=== PATIENT | male | born 1945 | race Caucasian/White ===

== ENCOUNTER 2018-06-01 12:10 | Outpatient (CLI) | payer OTHER ==
[2013-01-13 12:24] VITALS: TEMP 98; BMI 29.9
--- NOTE | 2018-06-01 15:41 | US ---
EXAM: Bilateral carotid artery Doppler. History: Dizziness. Technique: Multiple sonographic images through the bilateral internal carotid arteries were obtained . Color duplex Doppler was used to interrogate vascular flow. Findings: The right ICA peak systolic velocity is within normal limits measuring 90 cm/sec. The right ICA/cca PSV ratio is normal at 1.2. The right vertebral artery is patent and demonstrates antegrade flow.Gra y scale images demonstrate mild to moderate plaque buildup within the right internal carotid artery. The left ICA peak systolic velocity is within normal limits measuring 100 cm/sec. The left ICA/cca P SV ratio is normal at 1.4. The left vertebral artery is patent and demonstrates antegrade flow. Gra y scale images demonstrate moderate plaque buildup within the left carotid bulb and proximal left int ernal carotid artery. Impression: No significant hemodynamic stenosis of the bilateral internal carotid arteries.
== END 2018-06-01 12:11 | disposition home or self-care (01) ==
LOC: RAD 12:10
PROVIDERS: ATTEND Internal Medicine
DX: R42 Dizziness and giddiness (principal)

== ENCOUNTER 2018-06-12 06:47 | Outpatient (CLI) | payer OTHER ==
[2013-01-13 12:24] VITALS: TEMP 98; BMI 29.9
--- NOTE | 2018-06-13 10:02 | ECHO2D ---
Date of Exam: 06/12/18 Ordering Physician: DR. QUE SHIELDS Room # : OP Reason for Echo: DIZZINESS, SOB M-Mode Normal Adult Results LV Dimensions Normal Adult Results AoV Opening excursions >1.6 1.2 LVEDD-base- 3.5-5.8 4.2 Ao root dimensions 2.0-3.7 3.3 LVESD-base- 3.1-4.6 L. Atrium dimensions 1.9-3.8 5.3 Post. Wall thickness 0.8-1.1 1.3 IV septum (thickness) 0.7-1.2 1.2 Post. Wall excursion 0.72-1.3 NORMAL Septal motion 0.5 Systolic motion R. Ventricular cavity 1.5-2.0 NORMAL LVEF 60% 64% Paradoxical septal wall motion NORMAL 2-D : MILDLY HYPOKINETIC SEPTUM--ENLARGED LEFT ATRIAL CAVITY--NORMAL LEFT VENTRICLE SIZE--CALCIFIC AORTIC VALVE WITH STENOSIS--NO EFFUSION, NO THROMBUS M-MODE: MV: NORMAL AV: CALCIFIC AORTIC VALVES WITH MILD STENOSIS VALVE AREA 1.4 CM2 TV: NORMAL PV: NORMAL CHAMBER SIZE: ENLARGED LEFT ATRIAL CAVITY WALL MOTION: HYPOKINETIC SEPTUM (MILD) PERICARDIUM: NORMAL INTERPRETATION: 1. LEFT VENTRICULAR HYPERTROPHY WITH ENLARGED LEFT ATRIAL CAVITY 2. MILDLY HYPOKINETIC SEPTAL WALL WITH NORMAL EJECTION FRACTION 3. NORMAL LEFT VENTRICLE SIZE 4. CALCIFIC AORTIC STENOSIS--MILD (PLANIMETRY MATTEO AREA 1.4 CM2) MTDD
== END 2018-06-12 06:48 | disposition home or self-care (01) ==
LOC: CAR 06:47
PROVIDERS: ATTEND Internal Medicine
DX: R06.02 Shortness of breath (principal)

== ENCOUNTER 2018-12-12 14:55 | Outpatient (CLI) ==
[2013-01-13 12:24] VITALS: TEMP 98; BMI 29.9
--- NOTE | 2018-12-12 15:15 | DI ---
EXAM: Three views of the right foot. History: Right foot pain. Findings: No acute fracture or dislocation. Old healed fracture deformity of the fifth metatarsal a nd fourth metatarsal. Degenerative changes are seen at the mid foot with dorsal osteophytes and shiraz cent soft tissue swelling with osseous irregularity. Borderline hallux valgus deformity. Mild to mo derate narrowing of the first MTP joint with osteophyte formation. Impression: 1. No acute osseous abnormality. 2. Old healed fracture deformities of the fourth and fifth metatarsals 3. 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 4. Borderline hallux valgus deformity
== END 2018-12-12 14:56 | disposition home or self-care (01) ==
LOC: RAD 14:55
PROVIDERS: ATTEND Internal Medicine
DX: M79.671 Pain in right foot (principal)

== ENCOUNTER 2024-02-01 17:02 | Inpatient (IN) ==
--- NOTE | 2024-02-01 17:34 | ED.PDOC ---
General ED Provider: Dr. TYRELL MCDONALD MD Chief Complaint: Fever Stated Complaint: Patient presents to ER from home complaining of worsening fever, malaise. Reports he started feeling unwell approximately 3 weeks ago and then started noticing he was running a fever (Tmax 103 F) yesterday. States he took 2 Motrin approximately an hour prior to arrival. Says he has a history of CABG as well as TAVR (prosthetic valve, Baker S3, 26mm in 10/2020). Denies any new URI symptoms (runny/stuffy nose, sore throat, congestion). No nausea, vomiting, diarrhea, shortness of breath, chest pain, abdominal pain. No other complaints. Of note, when patient was walking through ER door principal account clerk witnessed him collapsing and falling mostly on his right side and struck his head. Denies any loss of consciousness. Time Seen by Provider: 02/01/24 17:05 Mode of Arrival: Walk-In Information Source: Patient and Other (direct mail clerk) Exam Limitations: No limitations Primary Care Provider: QUE HUBBARD MD Nursing and Triage Documentation Reviewed and Agree: Yes What is Opioid Naive?: *Opioid Naive implies the patient is not already taking opioids or not chronically receiving opioids on a daily basis. *PRN dosing is not "usually" associated with tolerance. *Patients are at higher risk of over-sedation and aspiration. What is Opioid Tolerant?: *Opioid Tolerance implies less than the expected response to an opioid. *Acquired tolerance is defined by the patient taking 60mg of oral morphine daily (or equianalgesic dose of another opioid) for 1 week or more. *Often associated with chronic pain. *May take more than usual dose to achieve desired pain control. Review of Systems Review Of Systems Constitutional: Reports Fever, Malaise and Weakness All Other Systems: Reviewed and Negative (Except for those listed in the HPI.) [facility] Medical History Sciatica left M54.30 - Sciatica, unspecified side (ICD-10) SVT (supraventricular tachycardia) per Holter I47.1 - Supraventricular tachycardia (ICD-10) PAC (premature atrial contraction) Per Holter I49.1 - Atrial premature depolarization (ICD-10) Social History Smoking and tobacco status: Former smoker Tobacco: How many years used: 35 How long ago did patient quit smoking: Quit 1992 Alcohol intake: current Alcohol intake frequency: holidays/special occasions only Substance use type: does not use Special lopez needs: No Agree to transfusion: Yes Adopted: No Caregiver/support person: No Foster care: No Household members: spouse Housing: house Marital status: M Lives independently: Yes Number of children: 2 service: No Current occupational status: retired History of recent travel: No Do you think of yourself as: straight/heterosexual Current gender identity: male Seatbelt use: always Helmet use: No Drives intoxicated or rides with intoxicated owner operator tanker truck driver: No Water heater temperature set < 120 degrees: Yes Working smoke detector in home: Yes Fire extinguisher in home: Yes Carbon monoxide detector in home: Yes Surgical History History of nephrectomy, right Z90.5 - Acquired absence of kidney (ICD-10) Previous back surgery 2010 Z98.890 - Other specified postprocedural states (ICD-10) S/P AAA repair 1994 Z98.890 - Other specified postprocedural states (ICD-10) Z86.79 - Personal history of other diseases of the circulatory system (ICD- 10) S/P CABG (coronary artery bypass graft) 2011 Z95.1 - Presence of aortocoronary bypass graft (ICD-10) Physical Exam Physical Exam Appearance: Reports Ill-appearing, No pain distress and Well-nourished Ill-appearing: Mild Pain Distress: None Eyes: Reports SERA, EOMI and Conjunctiva clear ENT: Reports Ears normal, Nose normal and Oropharynx normal Neck: Supple Respiratory: Reports Airway patent, Breath sounds clear, Breath sounds equal and Respirations nonlabored Cardiovascular: Reports RRR, Pulses normal and Murmur GI/: Reports Soft, Nontender and Bowel sounds normal Musculoskeletal: Reports Normal strength, ROM intact, No edema and No calf tenderness Skin: Reports Warm, Dry, Normal color and Other (Approximately 2 cm long, shallow skin tear noted to right forearm) Neurological: Reports Sensation intact, Motor intact, Alert and Oriented Psychiatric: Reports Affect appropriate and Mood appropriate Interpretation EKG Interpretation EKG Interpretation By: ED Physician Time of EKG #1: 17:29 Rate: Normal Rhythm: Sinus Ectopy: None [place]: Left ST Segment: Normal Interpretation: NSR, LAD, LVH w QRS widening. Abnormal ECG. EKG Comparison: No significant changes (compared to 10/17/23) Radiology Interpretation Radiology Interpretation By: ED Physician Radiology Results: Positive Exam Interpreted: CXR Xray Comments: Mild cardiomegaly. Course Course 02/01/24 17:29 02/01/24 17:29 Orders, Labs, Meds: Lab Review 02/01/24 02/01/24 02/01/24 17:00 17:29 17:40 WBC 14.29 H RBC 4.11 L Hgb 11.8 L Hct 35.9 L MCV 87.3 MCH 28.7 MCHC 32.9 RDW Coeff of Channing 14.6 Plt Count 175 Immature Gran % (Auto) 0.6 Neut % (Auto) 87.4 H Lymph % (Auto) 4.8 L Pike % (Auto) 6.4 Eos % (Auto) 0.2 Baso % (Auto) 0.6 Neut # (Auto) 12.5 H Lymph # (Auto) 0.7 Pike # (Auto) 0.9 Eos # (Auto) 0.0 Baso # (Auto) 0.1 Immature Gran # (Auto) 0.1 ESR 40 H PT 10.4 INR 1.00 Puncture Site Rbrach Base Excess -5.1 L O2 Saturation 95.5 ABG pH 7.43 ABG pCO2 29.0 L ABG pO2 76.0 L ABG HCO3 19.2 L ABG Total CO2 20.1 Brice Test + Hemoglobin 1.4 Oxyhemoglobin 94.2 L Carboxyhemoglobin 2.0 H Total Hemoglobin 11.7 O2 Delivery Device Ra FiO2 % 21.0 Sodium 134.2 L Potassium 5.07 Chloride 106.4 Carbon Dioxide 16.6 L Anion Gap 16.27 BUN 35.8 H Creatinine 1.52 H Estimated GFR (MDRD) 45.00 BUN/Creatinine Ratio 23.55 Glucose 160.7 H Lactic Acid 2.86 H Calcium 9.05 Total Bilirubin 0.94 AST 25.3 ALT 19.5 Alkaline Phosphatase 87.2 Troponin I < 0.012 NT-Pro-B Natriuret Pep 1340 H Total Protein 7.15 Albumin 4.45 Globulin 2.70 Albumin/Globulin Ratio 1.64 Procalcitonin 0.29 H Adenovirus (PCR) Not detected B. pertussis DNA (PCR) Not detected B.parapertussis DNA PCR Not detected C. pneumoniae DNA (PCR) Not detected Coronavirus OC43 (PCR) Not detected Coronavirus HKU1 (PCR) Not detected Coronavirus 229E (PCR) Not detected Coronavirus NL63 (PCR) Not detected Human Metapneumovir PCR Not detected Influenza Type A (PCR) Not detected Influenza B (RT-PCR) Not detected M. pneumoniae (PCR) Not detected Parainfluenza 1 (PCR) Not detected Parainfluenza 2 (PCR) Not detected Parainfluenza 3 (PCR) Not detected Parainfluenza 4 (PCR) Not detected RSV (PCR) Not detected Entero/Rhino (PCR) Not detected SARS-CoV-2 (PCR) Not detected Orders Category Date Time Status ADMIT PATIENT INPATIENT .TO [facility] (MONITORED BED) ADMISSION 02/01/24 19:10 Active ABG DRAW REQUEST Stat CARDIO 02/01/24 17:12 Completed EKG-(ED ONLY) Stat CARDIO 02/01/24 17:15 Completed TELEMETRY MONITORING TELE CARE 02/01/24 19:11 Active VITAL SIGNS Q8HR CARE 02/01/24 19:10 Completed ED APPLY O2 .ONCE EMERGENCY 02/01/24 17:12 Active ED EXERCISE SCIENTIST APPLIED .ONCE EMERGENCY 02/01/24 17:12 Active ED IV/MEDIPORT/POWERPORT .ONCE EMERGENCY 02/01/24 17:12 Active ED VITAL SIGNS .ONCE EMERGENCY 02/01/24 17:12 Active ABG COOX Stat LAB 02/01/24 17:40 Completed BLOOD CULTURE (ED ONLY) Stat LAB 02/01/24 17:29 Received BLOOD CULTURE (ED ONLY) Stat LAB 02/01/24 17:29 Stop Req C-REACTIVE PROTEIN Stat LAB 02/01/24 17:12 Ordered CBC W/ AUTO DIFF Stat LAB 02/01/24 17:29 Completed COMPREHENSIVE METABOLIC PANEL Stat LAB 02/01/24 17:29 Completed ESR Stat LAB 02/01/24 17:29 Completed LACTIC ACID Stat LAB 02/01/24 17:29 Completed LACTIC ACID Timed LAB 02/01/24 20:24 Completed MRSA SCREEN Routine LAB 02/01/24 17:00 Received NT-PROBNP(ED) Stat LAB 02/01/24 17:29 Completed PROCALCITONIN Stat LAB 02/01/24 17:29 Completed PT WITH INR Stat LAB 02/01/24 17:29 Completed RESPIRATORY PANEL 2.1 (PCR) Stat LAB 02/01/24 17:00 Completed TROPONIN I Stat LAB 02/01/24 17:29 Completed URINALYSIS C & S IF INDICATED Stat LAB 02/01/24 17:12 Uncollected URINALYSIS C & S IF INDICATED Stat LAB 02/01/24 18:20 Uncollected 0.9 % Sodium Chloride [Saline Flush] Meds 02/01/24 17:12 Active 1 syr IVF PRN PRN Cefepime 2 gm/D5w [Maxipime 2 gm/50 ml D5w] Meds 02/01/24 18:28 Discontinued 2 gm in 50 ml IV ONCE Sodium Chloride 0.9% [Sodium Chloride] 1,000 ml Meds 02/01/24 17:12 Discontinued IV BOLUS Vancomycin/Water For Inj (Peg) [Vancomycin 1.5 Gram/300 Meds 02/01/24 18:28 Discontinued ml Premix] 1.5 gm in 300 ml IV ONCE RESUSCITATION STATUS Routine OTHERS 02/01/24 19:10 Ordered CHEST, 1V AP ONLY Stat RADS 02/01/24 17:[address] HEAD W/O CONTRAST Stat RADS 02/01/24 17:15 Completed Medications Generic Name Dose Route Start Last Admin Trade Name Freq PRN Reason Stop Dose Admin Acetaminophen 650 mg 02/01/24 20:26 Acetaminophen 325 Mg Tablet PO Q4H PRN Mild Pain Lactated Ringer's 1,000 mls @ 75 mls/hr 02/01/24 20:30 Lactated Ringers IV .[id number] [facility] Ondansetron HCl 4 mg 02/01/24 20:26 Ondansetron Hcl/Pf 4 Mg/2 Ml Sdv IVP Q6H PRN Nausea / Vomiting Sodium Chloride 1 syr 02/01/24 17:12 0.9% Sodium Chloride 10 Ml Disp.Syrin IVF PRN PRN To flush IV Discontinued Medications Generic Name Dose Route Start Last Admin Trade Name Freq PRN Reason Stop Dose Admin Sodium Chloride 1,000 mls @ 1,000 mls/hr 02/01/24 17:12 02/01/24 18:10 Sodium Chloride IV 02/01/24 18:11 1,000 mls/hr BOLUS STA Administration CEFEPIME 2 GM/D5W 2 gm in 50 mls @ 100 mls/hr 02/01/24 18:28 02/01/24 18:55 Maxipime 2 Gm/50 Ml D5w IV 02/01/24 18:57 100 mls/hr ONCE STA Administration VANCOMYCIN/WATER FOR INJ (PEG) 1.5 gm in 300 mls @ 200 mls/hr 02/01/24 18:28 02/01/24 20:03 Vancomycin 1.5 Gram/300 Ml Premix IV 02/01/24 19:57 200 mls/hr [place] [address] Report : [id number] Signed Patient: ASPEN JOYCE Acct:[id number] Medical Record: [id number] : 1945 Loc: ED Room/Bed: Age/Sex: 78 / M ADM Status: REG ER Date of Service: 02/01/24 Ordering Physician: TYRELL MCDONALD MD Procedure(s): CT HEAD W/O CONTRAST Report Number(s): [id number] Accession Number(s): [id number] cc: QUE HUBBARD MD; TYRELL MCDONALD MD EXAMINATION: HEAD CT WITHOUT CONTRAST HISTORY: Fall. Hit head. TECHNIQUE: Noncontrast CT of the brain was performed with images acquired from skull base to vertex. 2-D coronal and sagittal reformatted images were obtained from the axial source images. Contrast Dose: None. CT Dose Reduction Techniques Performed: Yes. COMPARISON: 06/15/2021 FINDINGS: Topogram demonstrates no significant abnormality. Intraparenchymal hemorrhage: None. Parenchyma: Normal ordonez-white differentiation. No mass effect or midline shift. Age related cerebral atrophy. Mild periventricular white matter ischemic change consistent with small vessel disease. Mild bilateral internal carotid artery calcifications. The Extra-axial spaces and basal cisterns: Normal. Ventricles: Normal size and morphology for age. Paranasal sinuses and mastoid air cells: Visualized portions of paranasal sinuses are clear. Mastoid air cells are clear. Orbits: Normal visualized portions. Sella/Skull Base: Normal. Other: Scalp and visualized soft tissues are normal. Calvarium is normal. Mild rightward deviation nasal septum. IMPRESSION: Senescent changes without acute abnormality All CT scans are performed using dose optimization techniques as appropriate to the performed exam and include at least one of the following: Automated exposure control, adjustment of the mA and/or kV according to size, and the use of iterative reconstruction technique. Dictated By: FIDE JAIN MD Signed By: FIDE JAIN MD Dictated Date/Time: 02/01/241800 Transcribed Date/Time: 02/01/241800 Signed Date/Time: 02/01/24 [address] [place] [address] Diagnostic Imaging Diagnostic Imaging Report : [id number] Signed Patient: ASPEN JOYCE Acct:[id number] Medical Record: [id number] : 1945 Loc: ED Room/Bed: Age/Sex: 78 / M ADM Status: REG ER Date of Service: 02/01/24 Ordering Physician: TYRELL MCDONALD MD Procedure(s): CHEST, 1V AP ONLY Report Number(s): [id number] Accession Number(s): [id number] cc: QUE HUBBARD MD; TYRELL MCDONALD MD EXAM: CHEST RADIOGRAPH TECHNIQUE: Single frontal chest radiograph. HISTORY: Shortness of breath. COMPARISON: None. FINDINGS: Lungs show no consolidation, pleural effusion or pneumothorax. The cardiac silhouette is enlarged. Mediastinal silhouette and pulmonary vessels within normal limits. Valve replacement and sternotomy changes. The upper abdomen is unremarkable. No acute bony abnormality. IMPRESSION: 1. Enlarged cardiac silhouette without edema or infiltrate. Dictated By: FIDE JAIN MD Signed By: FIDE JAIN MD Dictated Date/Time: 02/01/241736 Transcribed Date/Time: 02/01/241736 Signed Date/Time: 02/01/24 174 Vital Signs: Temp Pulse Resp BP Pulse Ox 02/01/24 17:12 99.4 F 83 19 115/51 L 96 18:56 - Spoke with pt's PCP (Dr. Luis F Hubbard) regarding status and current workup and management of fever. Also concerned about possible endocarditis given history of prosthetic, TAVR (10/2020). Pt is hemodynamically stable but with elevated WBC 14.3, BUN 35.8, Cr 1.5, LA 2.86, procal 0.29, ESR 40, BNP 1340. Given 1L NS bolus, IV cefepime, vanc. Agreed with further inpatient admission for continued workup to rule-out endocarditis. Recommended calling hospitalist and he will follow as Cardio consult. 19:00 - Spoke with on-call hospitalist (ALAN Cobian) regarding pt status and current workup and management of fever with suspected bacterial infection. Agreed to admission in order to continue workup-mgmt for possible endocarditis. Discharge Plan Discharge Patient Disposition: ADMITTED INPATIENT Discharge Problem: Fever Did you review [place] [employer] for ALL controlled substances?: No ED Provider: TYRELL MCDONALD Condition: Good
--- NOTE | 2024-02-01 17:43 | DI ---
EXAM: CHEST RADIOGRAPH TECHNIQUE: Single frontal chest radiograph. HISTORY: Shortness of breath. COMPARISON: None. FINDINGS: Lungs show no consolidation, pleural effusion or pneumothorax. The cardiac silhouette is enlarged. Mediastinal silhouette and pulmonary vessels within normal limits. Valve replacement and sternotomy changes. The upper abdomen is unremarkable. No acute bony abnormality. IMPRESSION: 1. Enlarged cardiac silhouette without edema or infiltrate.
[2024-02-01 17:44] LABS: BORDETELLA PARAPERTUSSIS (PCR) NOT DETECTED (NOT DETECT); BORDETELLA PERTUSSIS (PCR) NOT DETECTED (NOT DETECT); CHLAMYDIA PNEUMONIAE (PCR) NOT DETECTED (NOT DETECT); CORONAVIRUS 229E (PCR) NOT DETECTED (NOT DETECT); CORONAVIRUS HKU1 (PCR) NOT DETECTED (NOT DETECT); CORONAVIRUS NL63 (PCR) NOT DETECTED (NOT DETECT); CORONAVIRUS OC43 (PCR) NOT DETECTED (NOT DETECT); HUMAN METAPNEUMOVIRUS (PCR) NOT DETECTED (NOT DETECT); HUMAN RHINOVIRUS/ENTEROV (PCR) NOT DETECTED (NOT DETECT); INFLUENZA B (PCR) NOT DETECTED (NOT DETECT); MYCOPLASMA PNEUMONIAE (PCR) NOT DETECTED (NOT DETECT); PARAINFLUENZA VIRUS 1 (PCR) NOT DETECTED (NOT DETECT); PARAINFLUENZA VIRUS 2 (PCR) NOT DETECTED (NOT DETECT); PARAINFLUENZA VIRUS 3 (PCR) NOT DETECTED (NOT DETECT); PARAINFLUENZA VIRUS 4 (PCR) NOT DETECTED (NOT DETECT); RESPIRATORY SYNCYTIAL V (PCR) NOT DETECTED (NOT DETECT); SARS_COV_2 (PCR) NOT DETECTED (NOT DETECT)
[2024-02-01 17:49] LABS: BASOPHILS # (AUTO) 0.1 K/uL (0-0.2); BASOPHILS % (AUTO) 0.6 % (0.0-3.0); EOSINOPHILS % (AUTO) 0.2 % (0.0-7.0); HEMATOCRIT 35.9 % (42.0-52.0); HEMOGLOBIN 11.8 g/dl (14.0-18.0); IMMATURE GRANULOCYTE # (AUTO) 0.1 (0.0-1.0); IMMATURE GRANULOCYTE % (AUTO) 0.6 % (0.0-5.0); LYMPHOCYTES # (AUTO) 0.7 K/uL (0.60-3.4); LYMPHOCYTES % (AUTO) 4.8 (10.0-50.0); MEAN CORPUSCULAR HEMOGLOBIN 28.7 pg (27.0-31.0); MEAN CORPUSCULAR HGB CONC 32.9 (31.8-35.4); MEAN CORPUSCULAR VOLUME 87.3 fl (80.0-94.0); MONOCYTES # (AUTO) 0.9 K/uL (0.4-2.0); MONOCYTES % (AUTO) 6.4 (0-10); NEUTROPHILS # (AUTO) 12.5 K/ul (2.0-6.9); NEUTROPHILS % (AUTO) 87.4 % (42.2-75.2); PLATELET COUNT 175 10^3/uL (140-440); RDW COEFFICIENT OF VARIATION 14.6 % (11.6-14.8); RED BLOOD COUNT 4.11 10^6/ul (4.70-6.10); WHITE BLOOD COUNT 14.29 K/ul (4.2-10.2)
[2024-02-01 17:50] LABS: ABG O2 HGB 94.2 % (95-100); ABG PH 7.43 (7.35-7.45); BEecf -5.1 (-2.0-3.0); HCO3 19.2 (21-28); MetHb 1.4 (0-1.5); TCO2 20.1 (19-24); sO2 95.5 % (94-98); tHb 11.7 g/dl (11.7-17.4)
[2024-02-01 18:00] LABS: PROTHROMBIN TIME 10.4 SEC (9.3-11.0)
[2024-02-01 18:05] LABS: ALANINE AMINOTRANSFERASE 19.5 U/L (0-50); ALBUMIN 4.45 g/dL (3.5-5.0); ALKALINE PHOSPHATASE 87.2 U/L (56-119); ASPARTATE AMINO TRANSFERASE 25.3 U/L (17-59); BILIRUBIN,TOTAL 0.94 mg/dL (0.2-1.3); BLOOD UREA NITROGEN 35.8 mg/dL (9-20); CALCIUM 9.05 mg/dL (8.4-10.2); CARBON DIOXIDE 16.6 mmol/L (22-30.0); CHLORIDE 106.4 mmol/L (98-107); CREATININE 1.52 mg/dL (0.60-1.10); GLUCOSE 160.7 mg/dL (74-106); POTASSIUM 5.07 mmol/L (3.5-5.1); SODIUM 134.2 mmol/L (134.5-145); TOTAL PROTEIN 7.15 g/dL (6.3-8.2)
[2024-02-01] MEDS: SODIUM CHLORIDE 1,000 ML IV STA (18:10)
--- NOTE | 2024-02-01 18:10 | CT ---
EXAMINATION: HEAD CT WITHOUT CONTRAST HISTORY: Fall. Hit head. TECHNIQUE: Noncontrast CT of the brain was performed with images acquired from skull base to vertex. 2-D coronal and sagittal reformatted images were obtained from the axial source images. Contrast Dose: None. CT Dose Reduction Techniques Performed: Yes. COMPARISON: 06/15/2021 FINDINGS: Topogram demonstrates no significant abnormality. Intraparenchymal hemorrhage: None. Parenchyma: Normal ordonez-white differentiation. No mass effect or midline shift. Age related cerebral atrophy. Mild periventricular white matter ischemic change consistent with small vessel disease. M ild bilateral internal carotid artery calcifications. The Extra-axial spaces and basal cisterns: Normal. Ventricles: Normal size and morphology for age. Paranasal sinuses and mastoid air cells: Visualized portions of paranasal sinuses are clear. Mastoid air cells are clear. Orbits: Normal visualized portions. Sella/Skull Base: Normal. Other: Scalp and visualized soft tissues are normal. Calvarium is normal. Mild rightward deviation n breanna septum. IMPRESSION: Senescent changes without acute abnormality All CT scans are performed using dose optimization techniques as appropriate to the performed exam an d include at least one of the following: Automated exposure control, adjustment of the mA and/or kV according t o size, and the use of iterative reconstruction technique.
[2024-02-01 18:18] LABS: TROPONIN I < 0.012 ng/ml (0.0000-0.120)
[2024-02-01 18:25] LABS: ERYTHROCYTE SEDIMENTATION RATE 40 mm/hr (0-15)
[2024-02-01 18:53] LABS: ADENOVIRUS (PCR) NOT DETECTED (NOT DETECT)
[2024-02-01] MEDS: MAXIPIME 2 GM/50 ML D5W 2 GM/50 ML BAG IV STA (18:55)
[2024-02-01] MEDS: VANCOMYCIN 1.5 GRAM/300 ML PREMIX 1.5 GM/300 ML BAG IV STA (20:03)
[2024-02-01] MEDS ORDERED: TYLENOL PO PRN (20:26)
[2024-02-01] MEDS ORDERED: ZOFRAN 4 MG/2 ML IVP PRN (20:26)
--- NOTE | 2024-02-01 21:45 | CT ---
EXAM: CHEST CTA WITH CONTRAST (PULMONARY ARTERY) HISTORY: Fever of unknown source. TECHNIQUE: CTA acquisition of the chest from the thoracic inlet to the upper abdomen following IV con trast administration timed to filling of the pulmonary artery. IV Contrast: 100 ml of Visipaque. 3D/MIP/VR images Yes. CT Dose Reduction Techniques Employed: Yes. COMPARISON: None. FINDINGS: Lines, Tubes, Devices: None. Pulmonary Embolism: - Diagnostic quality: Adequate. - Central(Main/Lobar/Interlobar): No embolus. - Peripheral (Segmental/Subsegmental): No embolus. - Right ventricle/Left ventricle ratio (normal <0.9): Normal. Lung Parenchyma and Airways: Central airways are patent without endobronchial lesion. No focal consolidation. No suspicious pulmonary nodule. Emphysematous changes. Pleural Space: No pleural effusion. No pleural thickening. No pneumothorax. Thoracic Inlet, Mediastinum, and Sofi: Thyroid gland is normal. No lymphadenopathy. Heart, Vessels, and Pericardium: Postoperative changes. TAVR device. -Aorta is normal in caliber with mild atherosclerotic calcifications. -Main pulmonary artery is normal in caliber. -Heart chambers are not enlarged. -No significant valvular calcifications. -Tri-vessel coronary artery calcifications, however exam is not optimized for evaluation. -No pericardial effusion or thickening. Bones and Soft Tissues: Visualized bones are within normal limits. Chest wall soft tissues are withi n normal limits. Upper Abdomen: Adrenal adenoma measuring up to 2.7 cm.. IMPRESSION: 1. No pulmonary embolism. 2. No acute pulmonary disease. 3. Coronary artery disease. All CT scans are performed using dose optimization techniques as appropriate to the performed exam an d include at least one of the following: Automated exposure control, adjustment of the mA and/or kV according t o size, and the use of iterative reconstruction technique.
--- NOTE | 2024-02-01 21:56 | CT ---
EXAM: CT ABDOMEN AND PELVIS WITH CONTRAST HISTORY: Fever TECHNIQUE: CT acquisition of the abdomen and pelvis from the lower thorax through the pelvis followin g IV contrast administration. 2-D coronal and sagittal reformatted images were obtained from the axi al source images. IV Contrast: 100 mL of Visipaque 320 administered. Oral Contrast: None. CT Dose Reduction Techniques Performed: Yes. COMPARISON: None. FINDINGS: Lower Thorax: Lung bases show mild scarring, otherwise clear. Aortic valve replacement changes Liver: No mass. Normal morphology. Biliary: The gallbladder and bile ducts are normal. Pancreas: No mass or evidence of pancreatitis. No duct dilation. Spleen: No mass. No splenomegaly. Adrenals: The right adrenal gland does show a 2.8 cm nodule which is indeterminate. The left adrenal gland is normal. Kidneys/Ureters: Status post right nephrectomy. No soft tissue in the nephrectomy bed. The left kid abbey shows a couple punctate calcifications in the collecting system region versus the distal arteries . No hydronephrosis. A couple tiny cyst seen in the left kidney without discrete solid lesion. GI Tract: Diverticula seen along the sigmoid colon without pericolonic inflammation. The colon shows no other focal abnormality. The appendix is not visualized. Small bowel shows no focal abnormality or obstruction. The stomach is unremarkable. Peritoneal Cavity: No free air, free fluid, fluid collections or areas of inflammation. Retroperitoneum: No fluid collection. Lymph Nodes: No lymphadenopathy. Vasculature: Mild aortic atherosclerotic calcifications. No aortic or iliac aneurysm. Celiac, super ior mesenteric, and inferior mesenteric arteries are grossly patent. Limited assessment of the juan antonio l and hepatic veins and IVC is unremarkable within limitations of the phase of IV contrast. Pelvis: No mass. Bladder is normal. Pelvic structures visualized within normal limits Bones/Soft Tissues: No fracture or lytic lesion. Degenerative changes seen in the spine Visualized ab dominal wall soft tissues are unremarkable. IMPRESSION: 1. No acute abnormality of the abdomen and pelvis. 2. Punctate calcifications seen in the left kidney. Unsure if these are urinary stones or distal a rterial calcifications. No hydronephrosis. 3. Sigmoid diverticulosis without radiographic indication of diverticulitis. 4. Indeterminate right adrenal gland nodule. Suggest follow-up non-emergent MR of the adrenal gland s, without and with contrast, for further evaluation. 5. No abdominal aortic aneurysm. 6. Other chronic and non emergent findings as above. All CT scans are performed using dose optimization techniques as appropriate to the performed exam an d include at least one of the following: Automated exposure control, adjustment of the mA and/or kV according t o size, and the use of iterative reconstruction technique.
[2024-02-01 22:18] VITALS: BMI 31.4
[2024-02-01] MEDS: LACTATED RINGERS 1,000 ML IV SCH (22:24)
[2024-02-01 23:56] LABS: BILIRUBIN,URINE Negative (NEGATIVE); CLARITY,URINE Clear (CLEAR); COLOR,URINE Yellow (YELLOW); GLUCOSE, URINE (UA) Negative (NEGATIVE); KETONES,URINE Negative (NEGATIVE); LEUKOCYTE ESTERASE ,URINE Negative (NEGATIVE); NITRITE,URINE Negative (NEGATIVE); PH,URINE 5.5 (5-9); PROTEIN,URINE Negative (NEGATIVE); URINE, BLOOD Negative (NEGATIVE); UROBILINOGEN,URINE 0.2 (0.2)
[2024-02-02] MEDS: MAXIPIME 1 GM VIAL 1 GM in SODIUM CHLORIDE 50 ML IV SCH (05:35)
[2024-02-02] MEDS: MAXIPIME 1 GM VIAL ONE (05:36)
[2024-02-02 05:41] LABS: ALANINE AMINOTRANSFERASE 15.1 U/L (0-50); ALBUMIN 3.77 g/dL (3.5-5.0); ALKALINE PHOSPHATASE 94.7 U/L (56-119); ASPARTATE AMINO TRANSFERASE 29.7 U/L (17-59); BILIRUBIN,TOTAL 0.69 mg/dL (0.2-1.3); BLOOD UREA NITROGEN 32.4 mg/dL (9-20); CALCIUM 8.58 mg/dL (8.4-10.2); CARBON DIOXIDE 16.7 mmol/L (22-30.0); CHLORIDE 110.2 mmol/L (98-107); CREATININE 1.45 mg/dL (0.60-1.10); GLUCOSE 146.9 mg/dL (74-106); POTASSIUM 4.12 mmol/L (3.5-5.1); SODIUM 135.4 mmol/L (134.5-145); TOTAL PROTEIN 6.33 g/dL (6.3-8.2)
[2024-02-02 05:44] LABS: BASOPHILS # (AUTO) 0.1 K/uL (0-0.2); BASOPHILS % (AUTO) 0.6 % (0.0-3.0); EOSINOPHILS # (AUTO) 0.1 K/ul (0.0-0.7); EOSINOPHILS % (AUTO) 0.9 % (0.0-7.0); HEMATOCRIT 31.3 % (42.0-52.0); HEMOGLOBIN 10.2 g/dl (14.0-18.0); IMMATURE GRANULOCYTE % (AUTO) 0.4 % (0.0-5.0); LYMPHOCYTES # (AUTO) 0.9 K/uL (0.60-3.4); LYMPHOCYTES % (AUTO) 11.1 (10.0-50.0); MEAN CORPUSCULAR HEMOGLOBIN 29.1 pg (27.0-31.0); MEAN CORPUSCULAR HGB CONC 32.6 (31.8-35.4); MEAN CORPUSCULAR VOLUME 89.2 fl (80.0-94.0); MONOCYTES # (AUTO) 0.7 K/uL (0.4-2.0); MONOCYTES % (AUTO) 7.9 (0-10); NEUTROPHILS # (AUTO) 6.7 K/ul (2.0-6.9); NEUTROPHILS % (AUTO) 79.1 % (42.2-75.2); PLATELET COUNT 138 10^3/uL (140-440); RDW COEFFICIENT OF VARIATION 14.8 % (11.6-14.8); RED BLOOD COUNT 3.51 10^6/ul (4.70-6.10)
[2024-02-02 05:54] LABS: WHITE BLOOD COUNT 8.45 K/ul (4.2-10.2)
[2024-02-02] MEDS ORDERED: [UNRECOGNIZED DRUG - REMARK] IV SCH (09:00)
[2024-02-02] MEDS ORDERED: VANCOMYCIN 1.5 GRAM/300 ML PREMIX 1.5 GM/300 ML BAG IV SCH (09:00)
[2024-02-02] MEDS ORDERED: LOPRESSOR PO SCH (09:00)
[2024-02-02] MEDS: PLAVIX PO SCH (09:50)
[2024-02-02] MEDS: NEURONTIN PO SCH (09:50)
[2024-02-02] MEDS: ASPIRIN EC PO SCH (09:50)
[2024-02-02] MEDS: ZYLOPRIM PO SCH (09:50)
[2024-02-02] MEDS: ZESTRIL PO SCH (09:51)
[2024-02-02] MEDS: LOPRESSOR PO SCH (09:51)
[2024-02-02] MEDS: LIPITOR PO SCH (09:51)
--- NOTE | 2024-02-02 11:02 | PCM ---
Date of Service Date Seen by Provider: 02/02/24 Time Seen by Provider: 08:45 Admit Day/Time Admission Date: 02/01/24 Admission Time: 19:10 Reason for Admission Chief Complaint: SEPSIS Hospital Provider Hospital Provider: FLETCHER GUILLEN [place]C, [facility] [place] Primary Care Physician: QUE SHIELDS MD History of Present Illness History of Present Illness: Patient is a 78 year old male with pmhx of CAD s/p CABG, aortic stenosis s/p TAVR, hx of renal cell carcinoma s/p right nephrectomy, DMT2, hypertension, PAD, CKD who presented to ER with cc of overall malaise and fever. Patient states he is normally very active but over last couple weeks he's been fatigued. He describes feeling off balance, especially when getting out of bed/changing positions quickly. Denies dizziness, lightheadedness, syncope. Denies cp, sob, n/v/d. Yesterday starting having severe chills and temp was 102. Drove himself to the ER and fell walking into the ER. CT head and UA negative. WBC 14 and procal mildly elevated. Lactic elevated as well. He was given fluids and abx. Repeat lactic negative. Viral panel negative. CT c/a/p with contrast negative for acute findings. Patient is feeling much better today. States he is 110%. Case Discussed With Case Discussed With: Patient's case was discussed with the ER Physicians, Dr. Kohler. [facility] Medical History Sciatica left M54.30 - Sciatica, unspecified side (ICD-10) SVT (supraventricular tachycardia) per Holter I47.1 - Supraventricular tachycardia (ICD-10) PAC (premature atrial contraction) Per Holter I49.1 - Atrial premature depolarization (ICD-10) Surgical History History of nephrectomy, right Z90.5 - Acquired absence of kidney (ICD-10) Previous back surgery 2010 Z98.890 - Other specified postprocedural states (ICD-10) S/P AAA repair 1994 Z98.890 - Other specified postprocedural states (ICD-10) Z86.79 - Personal history of other diseases of the circulatory system (ICD- 10) S/P CABG (coronary artery bypass graft) 2011 Z95.1 - Presence of aortocoronary bypass graft (ICD-10) Family History FATHER Lung cancer Bladder cancer Mother ALS (amyotrophic lateral sclerosis) Social History Smoking and tobacco status: Former smoker Tobacco: How many years used: 35 How long ago did patient quit smoking: Quit 1992 Alcohol intake: current Alcohol intake frequency: holidays/special occasions only Substance use type: does not use Special lopez needs: No Agree to transfusion: Yes Adopted: No Caregiver/support person: No Foster care: No Household members: spouse Housing: house Marital status: M Lives independently: Yes Number of children: 2 service: No Current occupational status: retired History of recent travel: No Do you think of yourself as: straight/heterosexual Current gender identity: male Seatbelt use: always Helmet use: No Drives intoxicated or rides with intoxicated sweeper driver: No Water heater temperature set < 120 degrees: Yes Working smoke detector in home: Yes Fire extinguisher in home: Yes Carbon monoxide detector in home: Yes Allergies Allergies Allergy/AdvReac Type Severity Reaction Status Date / Time No Known Allergies Allergy Verified 02/01/24 17:49 Current Medications Home Medications ferrous fumarate 55 mg (18 mg iron) tablet,extended release (iron ER) 65 mg PO DAILY 01/07/13 [History Confirmed 02/01/24 Last Taken 02/01/24] nitroglycerin 0.4 mg sublingual tablet (Nitrostat) 0.4 mg sublingual Q5MIN PRN Chest Pain 01/07/13 [History Confirmed 02/01/24 Last Taken 06/11/15] aspirin 81 mg tablet,delayed release (Adult Low Dose Aspirin) 81 mg PO QDAY 09/05/22 [History Confirmed 02/01/24 Last Taken 02/01/24] allopurinol 100 mg tablet 100 mg PO QDAY #90 tabs 08/01/23 [Rx Confirmed 02/01/24 Last Taken 02/01/24] atorvastatin 80 mg tablet 80 mg PO QDAY #90 tabs 08/01/23 [Rx Confirmed 02/01/24 Last Taken 02/01/24] clopidogrel 75 mg tablet 75 mg PO QDAY #90 tabs 08/01/23 [Rx Confirmed 02/01/24 Last Taken 02/01/24] lisinopril 5 mg tablet 5 mg PO QDAY #90 tabs 08/01/23 [Rx Confirmed 02/01/24 Last Taken 02/01/24] metoprolol tartrate 50 mg tablet 25 mg (1/2 x 50 mg) PO BID #180 tabs 08/01/23 [Rx Confirmed 02/01/24 Last Taken 02/01/24 08:00] triamterene 37.5 mg-hydrochlorothiazide 25 mg tablet 1 tab PO QAM #90 tabs 08/01/23 [Rx Confirmed 02/01/24 Last Taken 02/01/24] hydrocodone 5 mg-acetaminophen 325 mg tablet 1 tab PO BID PRN pain #60 tabs 01/22/24 [Rx Confirmed 02/01/24 Last Taken Unknown] gabapentin 100 mg capsule See Rx Instructions .Route .COMPLEX #180 caps 01/31/24 [Rx Confirmed 02/01/24 Last Taken 02/01/24] metformin 500 mg tablet 250 mg PO DAILY 02/01/24 [History Confirmed 02/01/24 Last Taken 02/01/24] Home Acetaminophen (Acetaminophen 325 Mg Tablet) 650 mg PO Q4H PRN PRN Reason: Mild Pain Allopurinol (Allopurinol 100 Mg Tablet) 100 mg PO DAILY [facility] Last Admin: 02/02/24 09:50 Dose: 100 mg Aspirin (Aspirin 81 Mg Tablet.) 81 mg PO DAILYWM2 [facility] Last Admin: 02/02/24 09:50 Dose: 81 mg Atorvastatin Calcium (Atorvastatin Calcium 20 Mg Tablet) 80 mg PO DAILY [facility] Last Admin: 02/02/24 09:51 Dose: 80 mg Clopidogrel Bisulfate (Clopidogrel Bisulfate 75 Mg Tablet) 75 mg PO DAILY [facility] Last Admin: 02/02/24 09:50 Dose: 75 mg Gabapentin (Gabapentin 100 Mg Capsule) 100 mg PO BID [facility] Last Admin: 02/02/24 09:50 Dose: 100 mg Lactated Ringer's (Lactated Ringers) 1,000 mls @ 75 mls/hr IV .[id number] [facility] Last Admin: 02/01/24 22:24 Dose: 75 mls/hr CEFEPIME 2 GM/D5W (Maxipime 2 Gm/50 Ml D5w) 2 gm in 50 mls @ 100 mls/hr IV 0500,1700 [facility] Stop: 02/05/24 16:59 VANCOMYCIN/WATER FOR INJ (PEG) (Vancomycin 1.5 Gram/300 Ml Premix) 1.5 gm in 300 mls @ 200 mls/hr IV DAILY [facility] Stop: 02/05/24 13:59 Last Admin: 02/02/24 13:32 Dose: 200 mls/hr Lisinopril (Lisinopril 5 Mg Tablet) 5 mg PO DAILY [facility] Last Admin: 02/02/24 09:51 Dose: 5 mg Metoprolol Tartrate (Metoprolol Tartrate 25 Mg Tablet) 25 mg PO BID [facility] Last Admin: 02/02/24 09:51 Dose: 25 mg Ondansetron HCl (Ondansetron Hcl/Pf 4 Mg/2 Ml Sdv) 4 mg IVP Q6H PRN PRN Reason: Nausea / Vomiting Sodium Chloride (0.9% Sodium Chloride 10 Ml Disp.Syrin) 1 syr IVF PRN PRN PRN Reason: To flush IV Discontinued Medications Sodium Chloride (Sodium Chloride) 1,000 mls @ 1,000 mls/hr IV [facility] Stop: 02/01/24 18:11 Last Infusion: 02/01/24 19:35 Dose: Infused CEFEPIME 2 GM/D5W (Maxipime 2 Gm/50 Ml D5w) 2 gm in 50 mls @ 100 mls/hr IV ONCE STA Stop: 02/01/24 18:57 Last Admin: 02/01/24 18:55 Dose: 100 mls/hr VANCOMYCIN/WATER FOR INJ (PEG) (Vancomycin 1.5 Gram/300 Ml Premix) 1.5 gm in 300 mls @ 200 mls/hr IV ONCE STA Stop: 02/01/24 19:57 Last Admin: 02/01/24 20:03 Dose: 200 mls/hr Cefepime HCl 1 gm/ Sodium (Chloride) 50 mls @ 100 mls/hr IV Q12HR [facility] Stop: 02/05/24 06:29 Last Admin: 02/02/24 05:35 Dose: 100 mls/hr VANCOMYCIN/WATER FOR INJ (PEG) (Vancomycin 1.5 Gram/300 Ml Premix) 1.5 gm in 300 mls @ 200 mls/hr IV Q12HR [facility] Stop: 02/05/24 08:59 Opioid Naive vs. Tolerant Does Patient Take Opioids?: No Is Patient Opioid Naive?: Yes What is Opioid Naive?: *Opioid Naive implies the patient is not already taking opioids or not chronically receiving opioids on a daily basis. *PRN dosing is not "usually" associated with tolerance. *Patients are at higher risk of over-sedation and aspiration. Is Patient Opioid Tolerant?: No What is Opioid Tolerant?: *Opioid Tolerance implies less than the expected response to an opioid. *Acquired tolerance is defined by the patient taking 60mg of oral morphine daily (or equianalgesic dose of another opioid) for 1 week or more. *Often associated with chronic pain. *May take more than usual dose to achieve desired pain control. Review of Systems Constitutional: Reports Fever, Fatigue, Chills and Weakness Head: Reports Normocephalic and Atraumatic Cardiovascular: Denies Chest pain, Chest Pressure or Edema Respiratory: Denies Cough or Shortness of air Gastrointestinal: Denies Nausea, Vomiting, Diarrhea, Abdominal pain or Melena Genitourinary: Denies Dysuria or Hematuria Neurological: Reports Weakness and Problems with walking; Denies Dizziness, Syncope or Loss of Conciousness Physical examination Most Recent Vital Signs: Most Recent Vital Signs Temperature 97.8 F 02/02/24 10:00 Temperature Source Temporal Artery Scan 02/02/24 10:00 Temperature Source Oral 02/01/24 17:12 Pulse Rate 78 02/02/24 10:00 Respiratory Rate 18 02/02/24 10:00 Blood Pressure 124/65 02/02/24 10:00 Blood Pressure Mean 84 02/02/24 10:00 Blood Pressure Right Arm 118/63 02/01/24 21:10 Blood Pressure Location Left Arm 02/02/24 10:00 Blood Pressure Position Standing 02/02/24 10:00 O2 Sat by Pulse Oximetry 96 02/02/24 10:00 Oxygen Delivery Method Room Air 02/02/24 10:00 Height 5 ft 11 in 02/01/24 21:10 Weight 225 lb 5 oz 02/01/24 21:10 Telemetry Type Remote Telemetry 02/02/24 07:00 Telemetry Monitoring Continues 02/02/24 07:00 Telemetry Heart Rate 74 02/02/24 07:00 EKG [place] Interval 0.2 02/02/24 07:00 EKG QRS Interval 0.09 02/02/24 07:00 Telemetry Strip Reading SR 1st degree block 02/02/24 07:00 Appearance: Positive No Apparent Distress and Alert and Oriented x3 Skin: Positive [place], Warm, Good Turgor and Good Color; Negative Rashes HEENT: Positive Normocephalic and Atraumatic Neck: Positive Supple and Midline Trachea Chest/Lungs: Positive Clear to Auscultation Bilaterally; Negative Rales, Rhonci or Wheezes Heart: Positive RRR and Murmur GI/: Positive Soft, Nontender, Bowel Sounds Normal and No Distention Neurological: Positive Cranial Nerves Intact, Alert, Oriented and Muscle Strength 5/5 in Upper and Lower Extremities Bilaterally Psychiatric: Positive Oriented x4, Appropriate Mood and Appropriate Affect Labs This Visit Labs This Visit: Labs This Visit 02/01/24 02/01/24 02/01/24 17:00 17:29 17:40 WBC 14.29 H RBC 4.11 L Hgb 11.8 L Hct 35.9 L MCV 87.3 MCH 28.7 MCHC 32.9 RDW Coeff of Channing 14.6 Plt Count 175 Immature Gran % (Auto) 0.6 Neut % (Auto) 87.4 H Lymph % (Auto) 4.8 L [place] % (Auto) 6.4 Eos % (Auto) 0.2 Baso % (Auto) 0.6 Neut # (Auto) 12.5 H Lymph # (Auto) 0.7 [place] # (Auto) 0.9 Eos # (Auto) 0.0 Baso # (Auto) 0.1 Immature Gran # (Auto) 0.1 ESR 40 H PT 10.4 INR 1.00 Puncture Site Rbrach Base Excess -5.1 L O2 Saturation 95.5 ABG pH 7.43 ABG pCO2 29.0 L ABG pO2 76.0 L ABG HCO3 19.2 L ABG Total CO2 20.1 Brice Test + Hemoglobin 1.4 Oxyhemoglobin 94.2 L Carboxyhemoglobin 2.0 H Total Hemoglobin 11.7 O2 Delivery Device Ra FiO2 % 21.0 Sodium 134.2 L Potassium 5.07 Chloride 106.4 Carbon Dioxide 16.6 L Anion Gap 16.27 BUN 35.8 H Creatinine 1.52 H Estimated GFR (MDRD) 45.00 BUN/Creatinine Ratio 23.55 Glucose 160.7 H Lactic Acid 2.86 H Calcium 9.05 Total Bilirubin 0.94 AST 25.3 ALT 19.5 Alkaline Phosphatase 87.2 Troponin I < 0.012 NT-Pro-B Natriuret Pep 1340 H Total Protein 7.15 Albumin 4.45 Globulin 2.70 Albumin/Globulin Ratio 1.64 Procalcitonin 0.29 H Urine Color Urine Clarity Urine pH Ur Specific [place] Urine Protein Urine Glucose (UA) Urine Ketones Urine Blood Urine Nitrite Urine Bilirubin Urine Urobilinogen Ur Leukocyte Esterase Adenovirus (PCR) Not detected B. pertussis DNA (PCR) Not detected B.parapertussis DNA PCR Not detected C. pneumoniae DNA (PCR) Not detected Coronavirus OC43 (PCR) Not detected Coronavirus HKU1 (PCR) Not detected Coronavirus 229E (PCR) Not detected Coronavirus NL63 (PCR) Not detected Human Metapneumovir PCR Not detected Influenza Type A (PCR) Not detected Influenza B (RT-PCR) Not detected M. pneumoniae (PCR) Not detected Parainfluenza 1 (PCR) Not detected Parainfluenza 2 (PCR) Not detected Parainfluenza 3 (PCR) Not detected Parainfluenza 4 (PCR) Not detected RSV (PCR) Not detected Entero/Rhino (PCR) Not detected SARS-CoV-2 (PCR) Not detected 02/01/24 02/01/24 02/02/24 20:24 23:40 05:15 WBC 8.45 D RBC 3.51 L Hgb 10.2 L Hct 31.3 L MCV 89.2 MCH 29.1 MCHC 32.6 RDW Coeff of Channing 14.8 Plt Count 138 L Immature Gran % (Auto) 0.4 Neut % (Auto) 79.1 H Lymph % (Auto) 11.1 [place] % (Auto) 7.9 Eos % (Auto) 0.9 Baso % (Auto) 0.6 Neut # (Auto) 6.7 Lymph # (Auto) 0.9 [place] # (Auto) 0.7 Eos # (Auto) 0.1 Baso # (Auto) 0.1 Immature Gran # (Auto) 0.0 ESR PT INR Puncture Site Base Excess O2 Saturation ABG pH ABG pCO2 ABG pO2 ABG HCO3 ABG Total CO2 Brice Test Hemoglobin Oxyhemoglobin Carboxyhemoglobin Total Hemoglobin O2 Delivery Device FiO2 % Sodium 135.4 Potassium 4.12 Chloride 110.2 H Carbon Dioxide 16.7 L Anion Gap 12.62 BUN 32.4 H Creatinine 1.45 H Estimated GFR (MDRD) 47.00 BUN/Creatinine Ratio 22.34 Glucose 146.9 H Lactic Acid 1.24 Calcium 8.58 Total Bilirubin 0.69 AST 29.7 ALT 15.1 Alkaline Phosphatase 94.7 Troponin I NT-Pro-B Natriuret Pep Total Protein 6.33 Albumin 3.77 Globulin 2.56 Albumin/Globulin Ratio 1.47 Procalcitonin 0.32 H Urine Color Yellow Urine Clarity Clear Urine pH 5.5 Ur Specific [place] 1.020 Urine Protein Negative Urine Glucose (UA) Negative Urine Ketones Negative Urine Blood Negative Urine Nitrite Negative Urine Bilirubin Negative Urine Urobilinogen 0.2 Ur Leukocyte Esterase Negative Adenovirus (PCR) B. pertussis DNA (PCR) B.parapertussis DNA PCR C. pneumoniae DNA (PCR) Coronavirus OC43 (PCR) Coronavirus HKU1 (PCR) Coronavirus 229E (PCR) Coronavirus NL63 (PCR) Human Metapneumovir PCR Influenza Type A (PCR) Influenza B (RT-PCR) M. pneumoniae (PCR) Parainfluenza 1 (PCR) Parainfluenza 2 (PCR) Parainfluenza 3 (PCR) Parainfluenza 4 (PCR) RSV (PCR) Entero/Rhino (PCR) SARS-CoV-2 (PCR) Imaging Imaging: EXAM: CHEST RADIOGRAPH TECHNIQUE: Single frontal chest radiograph. HISTORY: Shortness of breath. COMPARISON: None. FINDINGS: Lungs show no consolidation, pleural effusion or pneumothorax. The cardiac silhouette is enlarged. Mediastinal silhouette and pulmonary vessels within normal limits. Valve replacement and sternotomy changes. The upper abdomen is unremarkable. No acute bony abnormality. IMPRESSION: 1. Enlarged cardiac silhouette without edema or infiltrate. EXAM: CT ABDOMEN AND PELVIS WITH CONTRAST HISTORY: Fever TECHNIQUE: CT acquisition of the abdomen and pelvis from the lower thorax through the pelvis following IV contrast administration. 2-D coronal and sagittal reformatted images were obtained from the axial source images. IV Contrast: 100 mL of Visipaque 320 administered. Oral Contrast: None. CT Dose Reduction Techniques Performed: Yes. COMPARISON: None. FINDINGS: Lower Thorax: Lung bases show mild scarring, otherwise clear. Aortic valve replacement changes Liver: No mass. Normal morphology. Biliary: The gallbladder and bile ducts are normal. Pancreas: No mass or evidence of pancreatitis. No duct dilation. Spleen: No mass. No splenomegaly. Adrenals: The right adrenal gland does show a 2.8 cm nodule which is indeterminate. The left adrenal gland is normal. Kidneys/Ureters: Status post right nephrectomy. No soft tissue in the nephrectomy bed. The left kidney shows a couple punctate calcifications in the collecting system region versus the distal arteries. No hydronephrosis. A couple tiny cyst seen in the left kidney without discrete solid lesion. GI Tract: Diverticula seen along the sigmoid colon without pericolonic inflammation. The colon shows no other focal abnormality. The appendix is not visualized. Small bowel shows no focal abnormality or obstruction. The stomach is unremarkable. Peritoneal Cavity: No free air, free fluid, fluid collections or areas of inflammation. Retroperitoneum: No fluid collection. Lymph Nodes: No lymphadenopathy. Vasculature: Mild aortic atherosclerotic calcifications. No aortic or iliac aneurysm. Celiac, superior mesenteric, and inferior mesenteric arteries are g rossly patent. Limited assessment of the portal and hepatic veins and IVC is unremarkable within limitations of the phase of IV contrast. Pelvis: No mass. Bladder is normal. Pelvic structures visualized within normal limits Bones/Soft Tissues: No fracture or lytic lesion. Degenerative changes seen in the spine Visualized abdominal wall soft tissues are unremarkable. IMPRESSION: 1. No acute abnormality of the abdomen and pelvis. 2. Punctate calcifications seen in the left kidney. Unsure if these are urinary stones or distal arterial calcifications. No hydronephrosis. 3. Sigmoid diverticulosis without radiographic indication of diverticulitis. 4. Indeterminate right adrenal gland nodule. Suggest follow-up non-emergent MR of the adrenal glands, without and with contrast, for further evaluation. 5. No abdominal aortic aneurysm. 6. Other chronic and non emergent findings as above. EXAM: CHEST CTA WITH CONTRAST (PULMONARY ARTERY) HISTORY: Fever of unknown source. TECHNIQUE: CTA acquisition of the chest from the thoracic inlet to the upper abdomen following IV contrast administration timed to filling of the pulmonary artery. IV Contrast: 100 ml of Visipaque. 3D/MIP/VR images Yes. CT Dose Reduction Techniques Employed: Yes. COMPARISON: None. FINDINGS: Lines, Tubes, Devices: None. Pulmonary Embolism: - Diagnostic quality: Adequate. - Central(Main/Lobar/Interlobar): No embolus. - Peripheral (Segmental/Subsegmental): No embolus. - Right ventricle/Left ventricle ratio (normal <0.9): Normal. Lung Parenchyma and Airways: Central airways are patent without endobronchial lesion. No focal consolidation. No suspicious pulmonary nodule. Emphysematous changes. Pleural Space: No pleural effusion. No pleural thickening. No pneumothorax. Thoracic Inlet, Mediastinum, and Sofi: Thyroid gland is normal. No lymphadenopathy. Heart, Vessels, and Pericardium: Postoperative changes. TAVR device. -Aorta is normal in caliber with mild atherosclerotic calcifications. -Main pulmonary artery is normal in caliber. -Heart chambers are not enlarged. -No significant valvular calcifications. -Tri-vessel coronary artery calcifications, however exam is not optimized for evaluation. -No pericardial effusion or thickening. Bones and Soft Tissues: Visualized bones are within normal limits. Chest wall soft tissues are within normal limits. Upper Abdomen: Adrenal adenoma measuring up to 2.7 cm.. IMPRESSION: 1. No pulmonary embolism. 2. No acute pulmonary disease. 3. Coronary artery disease. Review Statement Review Statement: I have independently reviewed and interpreted the labs/EKGs/imaging that were ordered by the ER provider. I have reviewed all outside records that are available currently in our EMR including imaging/notes/labs from previous visits. Plan Plan: 1. Sepsis with unclear source - Pt has elevated wbc, procal, and lactic. LA normalized with fluids. Cont cefe and vanc. Await blood cultures. Check echo due to TAVR. UA and ct c/a/p negative. No skin findings. 2. Weakness - Orthostats normal. PTOT consult. 3. DMT2 - Usually well controlled. Hold metformin. 4. Hypertension- Cont home meds 5. CAD s/p CABG - Cont home meds 6. Hyperlipidemia - Cont home meds DVT Prophylaxis: Ambulation Time Spent: Greater than 80 minutes spent with patient, 50% of the time spent with this patient was devoted to counseling and coordination of care. [facility] minutes spent discussing advance care planning. Admit to: Inpatient Discussed Plan of Care with Dr. Isreal Shields. Medications Medication Orders: Medications Ordered Category Date Time Status 0.9 % Sodium Chloride [Saline Flush] Meds 02/01/24 17:12 Active 1 syr IVF PRN PRN Acetaminophen [Tylenol] Meds 02/01/24 20:26 Active 650 mg PO Q4H PRN Allopurinol [Zyloprim] Meds 02/02/24 09:00 Active 100 mg PO DAILY Aspirin [Aspirin EC] Meds 02/02/24 09:00 Active 81 mg PO DAILYWM2 Atorvastatin Calcium [Lipitor] Meds 02/02/24 09:00 Active 80 mg PO DAILY Cefepime 2 gm/D5w [Maxipime 2 gm/50 ml D5w] Meds 02/02/24 17:00 Active 2 gm in 50 ml IV 0500,1700 Clopidogrel Bisulfate [Plavix] Meds 02/02/24 09:00 Active 75 mg PO DAILY Gabapentin [Neurontin] Meds 02/02/24 09:00 Active 100 mg PO BID Lisinopril [Zestril] Meds 02/02/24 09:00 Active 5 mg PO DAILY Metoprolol Tartrate [Lopressor] Meds 02/02/24 09:00 Active 25 mg PO BID Ondansetron HCl/Pf [Zofran 4 mg/2 ml] Meds 02/01/24 20:26 Active 4 mg IVP Q6H PRN Ringers Lactated Solution [Lactated Ringers] 1,000 ml Meds 02/01/24 20:30 Active IV 75 mls/hr Vancomycin/Water For Inj (Peg) [Vancomycin 1.5 Gram/300 Meds 02/02/24 14:00 Active ml Premix] 1.5 gm in 300 ml IV DAILY
[2024-02-02] MEDS: VANCOMYCIN 1.5 GRAM/300 ML PREMIX 1.5 GM/300 ML BAG IV SCH (13:32)
[2024-02-02] MEDS: MAXIPIME 2 GM/50 ML D5W 2 GM/50 ML BAG IV SCH (17:16)
[2024-02-03 05:46] LABS: BASOPHILS # (AUTO) 0.1 K/uL (0-0.2); EOSINOPHILS # (AUTO) 0.3 K/ul (0.0-0.7); EOSINOPHILS % (AUTO) 5.2 % (0.0-7.0); HEMATOCRIT 30.5 % (42.0-52.0); HEMOGLOBIN 9.9 g/dl (14.0-18.0); IMMATURE GRANULOCYTE # (AUTO) 0.1 (0.0-1.0); IMMATURE GRANULOCYTE % (AUTO) 1.1 % (0.0-5.0); LYMPHOCYTES # (AUTO) 1.2 K/uL (0.60-3.4); LYMPHOCYTES % (AUTO) 19.2 (10.0-50.0); MEAN CORPUSCULAR HEMOGLOBIN 29.2 pg (27.0-31.0); MEAN CORPUSCULAR HGB CONC 32.5 (31.8-35.4); MONOCYTES # (AUTO) 0.6 K/uL (0.4-2.0); MONOCYTES % (AUTO) 9.9 (0-10); NEUTROPHILS # (AUTO) 3.9 K/ul (2.0-6.9); NEUTROPHILS % (AUTO) 63.6 % (42.2-75.2); PLATELET COUNT 136 10^3/uL (140-440); RDW COEFFICIENT OF VARIATION 14.7 % (11.6-14.8); RED BLOOD COUNT 3.39 10^6/ul (4.70-6.10); WHITE BLOOD COUNT 6.14 K/ul (4.2-10.2)
[2024-02-03 05:57] LABS: ALANINE AMINOTRANSFERASE 16.5 U/L (0-50); ALBUMIN 3.63 g/dL (3.5-5.0); ALKALINE PHOSPHATASE 97.5 U/L (56-119); ASPARTATE AMINO TRANSFERASE 23.2 U/L (17-59); BILIRUBIN,TOTAL 0.39 mg/dL (0.2-1.3); BLOOD UREA NITROGEN 23.3 mg/dL (9-20); CALCIUM 8.86 mg/dL (8.4-10.2); CARBON DIOXIDE 20.9 mmol/L (22-30.0); CHLORIDE 111.6 mmol/L (98-107); CREATININE 1.11 mg/dL (0.60-1.10); GLUCOSE 173.2 mg/dL (74-106); POTASSIUM 4.22 mmol/L (3.5-5.1); SODIUM 137.7 mmol/L (134.5-145); TOTAL PROTEIN 6.04 g/dL (6.3-8.2)
--- NOTE | 2024-02-03 09:32 | DCSUM ---
Admission Date Admission Date: 02/01/24 Discharge Date Discharge Date: 02/03/24 Admission Diagnosis Admission Diagnosis: 1. Sepsis with unclear source Discharge Diagnosis Discharge Diagnosis: 1. Sepsis - ruled out 2. Fever - unknown source, could be viral 3. DMT2 4. Hypertension 5. CAD s/p CABG 6. Hyperlipidemia 7. Aortic stenosis s/p TAVR Hospital Provider Hospital Provider: FLETCHER GUILLEN PA-C, [facility] Primary Care Physician Primary Care Physician: QUE SHIELDS MD Summary of History and Physical Summary of History and Physical: Patient is a 78 year old male with pmhx of CAD s/p CABG, aortic stenosis s/p TAVR, hx of renal cell carcinoma s/p right nephrectomy, DMT2, hypertension, PAD, CKD who presented to ER with cc of overall malaise and fever. Patient states he is normally very active but over last couple weeks he's been fatigued. He describes feeling off balance, especially when getting out of bed/changing positions quickly. Denies dizziness, lightheadedness, syncope. Denies cp, sob, n/v/d. Yesterday starting having severe chills and temp was 102. Drove himself to the ER and fell walking into the ER. CT head and UA negative. WBC 14 and procal mildly elevated. Lactic elevated as well. He was given fluids and abx. Repeat lactic negative. Viral panel negative. CT c/a/p with contrast negative for acute findings. Patient is feeling much better today. States he is 110%. Hospital Course Subjective: Patient was treated with cefepime and vanc. CT c/a/p w/ negative. UA negative. Echo without any changes compared to last per Dr. Luis F Shields, final report pending. Pt has not ran a fever while admitted. He states he feels 110% again today. Blood cultures are negative to 48 hrs. WBC count normalized. Patient has not developed any new symptoms. Will discharge to home in stable condition. Red flags on when to return discussed. Could be viral in nature. Appearance: Pleasant, No Apparent Distress, Alert and Well-appearing HEENT: MMM and Supple CVS: Other (rrr, +murmur ) Abdomen: Soft, Non-Tender and No Distention Respiratory: No Accessory Muscle Use Extremities: No Edema Vital Signs: Most Recent Vital Signs Temperature 97.1 F L 07/13/24 05:11 Temperature Source Temporal Artery Scan 02/03/24 05:11 Temperature Source Oral 02/01/24 17:12 Pulse Rate 61 02/03/24 08:00 Respiratory Rate 18 02/03/24 08:00 Blood Pressure 124/65 02/03/24 05:11 Blood Pressure Mean 84 02/03/24 05:11 Blood Pressure Right Arm 118/63 02/01/24 21:10 Blood Pressure Location Right Arm 02/03/24 05:11 Blood Pressure Position Supine 02/03/24 05:11 O2 Sat by Pulse Oximetry 96 02/03/24 05:11 Oxygen Delivery Method Room Air 02/03/24 08:00 Height 5 ft 11 in 02/01/24 21:10 Weight 225 lb 5 oz 02/01/24 21:10 Telemetry Type Remote Telemetry 02/03/24 07:00 Telemetry Monitoring Continues 02/03/24 07:00 Telemetry Heart Rate 55 L 02/03/24 07:00 EKG NH Interval 0.22 H 02/03/24 07:00 EKG QRS Interval 0.10 02/03/24 07:00 Telemetry Strip Reading SB/1st Degree AVB 02/03/24 07:00 Imaging: EXAM: CHEST RADIOGRAPH TECHNIQUE: Single frontal chest radiograph. HISTORY: Shortness of breath. COMPARISON: None. FINDINGS: Lungs show no consolidation, pleural effusion or pneumothorax. The cardiac silhouette is enlarged. Mediastinal silhouette and pulmonary vessels within normal limits. Valve replacement and sternotomy changes. The upper abdomen is unremarkable. No acute bony abnormality. IMPRESSION: 1. Enlarged cardiac silhouette without edema or infiltrate. EXAM: CT ABDOMEN AND PELVIS WITH CONTRAST HISTORY: Fever TECHNIQUE: CT acquisition of the abdomen and pelvis from the lower thorax through the pelvis following IV contrast administration. 2-D coronal and sagittal reformatted images were obtained from the axial source images. IV Contrast: 100 mL of Visipaque 320 administered. Oral Contrast: None. CT Dose Reduction Techniques Performed: Yes. COMPARISON: None. FINDINGS: Lower Thorax: Lung bases show mild scarring, otherwise clear. Aortic valve replacement changes Liver: No mass. Normal morphology. Biliary: The gallbladder and bile ducts are normal. Pancreas: No mass or evidence of pancreatitis. No duct dilation. Spleen: No mass. No splenomegaly. Adrenals: The right adrenal gland does show a 2.8 cm nodule which is indeterminate. The left adrenal gland is normal. Kidneys/Ureters: Status post right nephrectomy. No soft tissue in the nephrectomy bed. The left kidney shows a couple punctate calcifications in the collecting system region versus the distal arteries. No hydronephrosis. A couple tiny cyst seen in the left kidney without discrete solid lesion. GI Tract: Diverticula seen along the sigmoid colon without pericolonic inflammation. The colon shows no other focal abnormality. The appendix is not visualized. Small bowel shows no focal abnormality or obstruction. The stomach is unremarkable. Peritoneal Cavity: No free air, free fluid, fluid collections or areas of inflammation. Retroperitoneum: No fluid collection. Lymph Nodes: No lymphadenopathy. Vasculature: Mild aortic atherosclerotic calcifications. No aortic or iliac aneurysm. Celiac, superior mesenteric, and inferior mesenteric arteries are grossly patent. Limited assessment of the portal and hepatic veins and IVC is unremarkable within limitations of the phase of IV contrast. Pelvis: No mass. Bladder is normal. Pelvic structures visualized within normal limits Bones/Soft Tissues: No fracture or lytic lesion. Degenerative changes seen in the spine Visualized abdominal wall soft tissues are unremarkable. IMPRESSION: 1. No acute abnormality of the abdomen and pelvis. 2. Punctate calcifications seen in the left kidney. Unsure if these are urinary stones or distal arterial calcifications. No hydronephrosis. 3. Sigmoid diverticulosis without radiographic indication of diverticulitis. 4. Indeterminate right adrenal gland nodule. Suggest follow-up non-emergent MR of the adrenal glands, without and with contrast, for further evaluation. 5. No abdominal aortic aneurysm. 6. Other chronic and non emergent findings as above. EXAM: CHEST CTA WITH CONTRAST (PULMONARY ARTERY) HISTORY: Fever of unknown source. TECHNIQUE: CTA acquisition of the chest from the thoracic inlet to the upper abdomen following IV contrast administration timed to filling of the pulmonary a rtery. IV Contrast: 100 ml of Visipaque. 3D/MIP/VR images Yes. CT Dose Reduction Techniques Employed: Yes. COMPARISON: None. FINDINGS: Lines, Tubes, Devices: None. Pulmonary Embolism: - Diagnostic quality: Adequate. - Central(Main/Lobar/Interlobar): No embolus. - Peripheral (Segmental/Subsegmental): No embolus. - Right ventricle/Left ventricle ratio (normal <0.9): Normal. Lung Parenchyma and Airways: Central airways are patent without endobronchial lesion. No focal consolidation. No suspicious pulmonary nodule. Emphysematous changes. Pleural Space: No pleural effusion. No pleural thickening. No pneumothorax. Thoracic Inlet, Mediastinum, and Sofi: Thyroid gland is normal. No lymphadenopathy. Heart, Vessels, and Pericardium: Postoperative changes. TAVR device. -Aorta is normal in caliber with mild atherosclerotic calcifications. -Main pulmonary artery is normal in caliber. -Heart chambers are not enlarged. -No significant valvular calcifications. -Tri-vessel coronary artery calcifications, however exam is not optimized for evaluation. -No pericardial effusion or thickening. Bones and Soft Tissues: Visualized bones are within normal limits. Chest wall soft tissues are within normal limits. Upper Abdomen: Adrenal adenoma measuring up to 2.7 cm.. IMPRESSION: 1. No pulmonary embolism. 2. No acute pulmonary disease. 3. Coronary artery disease. Echo: Final read pending Lab Results Last 24 Hours: 02/03/24 02/01/24 05:22 17:29 WBC 6.14 RBC 3.39 L Hgb 9.9 L Hct 30.5 L MCV 90.0 MCH 29.2 MCHC 32.5 RDW Coeff of [place] 14.7 Plt Count 136 L Immature Gran % (Auto) 1.1 Neut % (Auto) 63.6 Lymph % (Auto) 19.2 [place] % (Auto) 9.9 Eos % (Auto) 5.2 Baso % (Auto) 1.0 Neut # (Auto) 3.9 Lymph # (Auto) 1.2 [place] # (Auto) 0.6 Eos # (Auto) 0.3 Baso # (Auto) 0.1 Immature Gran # (Auto) 0.1 Sodium 137.7 Potassium 4.22 Chloride 111.6 H Carbon Dioxide 20.9 L Anion Gap 9.42 BUN 23.3 H Creatinine 1.11 H Estimated GFR (MDRD) 64.00 BUN/Creatinine Ratio 20.99 Glucose 173.2 H Calcium 8.86 Total Bilirubin 0.39 AST 23.2 ALT 16.5 Alkaline Phosphatase 97.5 C-Reactive Prot, Quant 97 H Total Protein 6.04 L Albumin 3.63 Globulin 2.41 Albumin/Globulin Ratio 1.50 Procalcitonin 0.20 H Discharge Instructions Discharge Planning: Discharge Planning > [address] Isreal Shields. Discharge Medications: Medications at Discharge (Home Meds & RX) Discharge Plan Discharge Discharge Orders: Discharge Patient (ONCE); Ordered 02/03/24 Ordered By: FLETCHER GUILLEN Activity Restrictions/Additional Instructions: DISCHARGE TO HOME DX: FEVER FOLLOW UP WITH DR. SHIELDS. RETURN WITH WORSENING SYMPTOMS. DIET: CARDIAC/DIABETIC ACTIVITY: TOLERATED, FALL PRECAUTIONS Patient Disposition: HOME SELF-CARE Prescriptions: Continued metoprolol tartrate 50 mg tablet 25 mg PO BID Qty: 180 1RF lisinopril 5 mg tablet 5 mg PO QDAY Qty: 90 1RF clopidogrel 75 mg tablet 75 mg PO QDAY Qty: 90 1RF atorvastatin 80 mg tablet 80 mg PO QDAY Qty: 90 1RF triamterene-hydrochlorothiazid 37.5-25 mg tablet 1 tab PO QAM Qty: 90 2RF allopurinol 100 mg tablet 100 mg PO QDAY Qty: 90 1RF hydrocodone-acetaminophen 5-325 mg tablet 1 tab PO BID PRN (Reason: pain) Qty: 60 0RF gabapentin 100 mg capsule See Rx Instructions .ROUTE .COMPLEX Qty: 180 1RF Dose Instruction: TAKE 1 CAPSULE TWICE A DAY Rx Instructions: TAKE 1 CAPSULE TWICE A DAY iron 55 MG tablet extended release 65 mg PO DAILY nitroglycerin [Nitrostat] 0.4 MG tablet, sublingual 0.4 mg sublingual Q5MIN PRN (Reason: Chest Pain) metformin 500 mg tablet 250 mg PO DAILY aspirin [Adult Low Dose Aspirin] 81 mg tablet,delayed release (DR/EC) 81 mg PO QDAY Did you review [place] AUDIO NARRATOR for ALL controlled substances?: Not Applicable Discussed opioids are addictive and Narcan is available by prescription or from pharmacy.: No Condition: Good Referrals: QUE SHIELDS MD [Primary Care Provider] - 5-7 Days (PLEASE GET IN CONTACT WITH DR. SHIELDS'S OFFICE TO SCHEDULE A HOSPITAL FOLLOW UP. WE WERE UNABLE TO CONTACT THEM THEIR OFFICE IS CLOSED ON FRIDAYS. )
[2024-02-03 10:29] VITALS: BP 118/66; PULSE 54; RESP 16; TEMP 97.3
[2024-02-03] MEDS ORDERED: MAXIPIME 2 GM/50 ML D5W 2 GM/50 ML BAG IV SCH (13:00)
--- NOTE | 2024-02-06 13:36 | ECHO2D ---
Date of Exam: 02/02/2024 Ordering Physician: HOSPITALIST--ALAN LAWRENCE Room #: [id number] Reason for Echo: SOB, , CABG, AAA, PROSTHETIC VALVE M-Mode Normal Adult Results LV Dimensions Normal Adult Results AoV Opening excursions >1.6 1.4 LVEDD-base- 3.5-5.8 4.9 Ao root dimensions 2.0-3.7 3.1 LVESD-base- 3.1-4.6 L. Atrium dimensions 1.9-3.8 5.2 Post. Wall thickness 0.8-1.1 1.3 IV septum (thickness) 0.7-1.2 1.3 Post. Wall excursion 0.72-1.3 NORMAL Septal motion 0.8 Systolic motion R. Ventricular cavity 1.5-2.0 NORMAL LVEF 60% 65% Paradoxical septal wall motion NORMAL 2-D : CALCIFIC AORTIC VALVES--MILDLY HYPOKINETIC SEPTUM, MITRAL VALVE PROLAPSE NOTED APICAL FOUR CHAMBER VIEW--NO EFFUSION, NO THROMBUS-TRICUSPID VALVE, PULMONARY VALVE, MITRAL VALVE AND AORTIC VALVE NO ECHOGENIC EVIDENCE OF ENDOCARDITIS COLOR FLOW: MODERATE TRICUSPID, MILD TO MODERATE MITRAL REGURGITATION M-MODE: MV: CALCIFIC MITRAL VALVE ANNULUS AV: CALCIFIC AORTIC STENOSIS MILD TV: NORMAL PV: NORMAL CHAMBER SIZE: ENLARGED LEFT ATRIAL CAVITY WALL MOTION: NORMAL PERICARDIUM: NORMAL INTERPRETATION: 1. LEFT VENTRICLE HYPERTROPHY WITH ENLARGED LEFT ATRIAL CAVITY 2. CALCIFIC MILD AORTIC STENOSIS 3. NO ECHOGENIC EVIDENCE OF VEGETATION ON VALVES 4. HYPOKINETIC SEPTAL WALL WITH NORMAL EJECTION FRACTION MTDD
== END 2024-02-03 10:35 | disposition home or self-care (01) | DRG 872 ==
LOC: ED 17:02 → MEDSURG B 20:03
PROVIDERS: ADMIT Hospitalist; ATTEND Physician Assistant